=== PATIENT | male | born 1970 | race Two or more races ===

== ENCOUNTER 2024-06-05 04:26 | Day surgery (SDC) | payer OTHER ==
[2024-06-04 11:32] VITALS: BMI 25.9
[2024-06-05] MEDS ORDERED: ACETAMINOPHEN 500 MG TABLET (FP) PO PRN (08:50)
[2024-06-05] MEDS: LIDOCAINE HCL 1% PRESERVATIVE FREE - 30ML VIAL IJ ONE ×2 (09:52)
[2024-06-05] MEDS: IOHEXOL 180 MG/1 ML ML IJ ONE ×2 (09:54)
[2024-06-05] MEDS: DEXAMETHASONE SOD PHOSPHATE 10 MG/1 ML VIAL IM ONE ×2 (09:55)
[2024-06-05 16:06] VITALS: BP 129/66; PULSE 74; RESP 20; TEMP 96.8
== END 2024-06-05 10:05 | disposition home or self-care (01) ==
LOC: JASU-SURG 04:26
PROVIDERS: ATTEND Pain Medicine Pain Medicine
PROC: 3E0R3BZ Introduction of Anesthetic Agent into Spinal Canal, Percutaneous Approach (ICD-10-PCS; 2024-06-05)
PROC: 3E0R33Z Introduction of Anti-inflammatory into Spinal Canal, Percutaneous Approach (ICD-10-PCS; principal; 2024-06-05 10:00)
DX: M54.16 Radiculopathy, lumbar region (principal)
CPT/HCPCS: 76000-TC-FY; J1100